=== PATIENT | male | born 1980 | race Caucasian/White ===

== ENCOUNTER 2024-04-10 17:21 | Emergency (ER) | payer SELFPAY ==
[2024-04-10 17:25] VITALS: BP 141/95; PULSE 83; RESP 16; TEMP 36.6; O2SAT 100
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
[2024-04-10] MEDS: HYDROcodone/acetaminophen (*CRX) 5-325 MG TABLET 1 TAB PO (19:47)
== END 2024-04-10 19:56 | disposition home or self-care (01) ==
LOC: ANHED 19:54
PROVIDERS: Emergency Provider Physician Assistant; PCP Family Medicine
DX: S42.025A Nondisplaced fracture of shaft of left clavicle, initial encounter for closed fracture (principal); V18.4XXA Pedal cycle driver injured in noncollision transport accident in traffic accident, initial encounter; Y93.55 Activity, bike riding
CPT/HCPCS: 73000; 99284; A4565; A9270